=== PATIENT | female | born 1990 ===

== ENCOUNTER 2017-12-29 19:29 | Emergency (ER) | payer SELFPAY ==
[2017-12-29 20:29] LABS: #Lymphocytes 0.8 thou/uL (1.20-3.40); #Monocytes 0.4 thou/uL (0.11-0.59); #Neutrophils 6.4 thou/uL (1.40-6.50); %Basophils 0.4 % (0.0-1.0); %Eosinophils 0.2 % (0.0-10.0); %Monocytes 4.7 % (0.0-10.0); %Neutrophils 84.7 % (42.0-75.0); Hemoglobin 14.4 g/dL (12.0-16.0); Mean Corpuscular HGB CONC 34.3 g/dL (32.0-36.0); Mean Corpuscular Hemoglobin 33.2 pg (27.0-31.0); Mean Corpuscular Volume 96.9 fL (78.0-98.0); Mean Platelet Volume 9.6 fL (7.4-10.4); Platelet Count 105 thou/uL (130-400); RBC Distribution Width 11.1 % (11.5-14.5); Red Blood Cell (RBC) Count 4.34 mill/uL (4.20-5.40); White Blood Cell (WBC) Count 7.6 thou/uL (4.8-10.8)
[2017-12-29 20:36] LABS: PLT Morphology Comment Appears Decreased; RBC Morphology Normal
[2017-12-29 20:48] LABS: Bilirubin Negative (Negative); Blood, Urine Trace (Negative); Clarity CLOUDY (Clear); Glucose, Urine (Dipstick) Negative (Negative); Leukocyte Large (Negative); Nitrite Positive (Negative); Protein, Urine (Dipstick) Trace mg/dL (Neg-Trace); Specific Gravity, Urine 1.015 (1.002-1.036); Urobilinogen 0.2 mg/dL (0.2-1.0); pH, Urine 5.5 (5.0-9.0)
[2017-12-29 20:49] LABS: Pregnancy Test - Urine (BHCG) Negative (Negative); Pregu Control Background? CLEAR/WHITE (CLR/WHITE); Pregu Control Bar Appear? YES (CONTROL BAR); Specific Gravity 1.015 (1.002-1.036)
[2017-12-29 20:51] LABS: Bacteria/HPF 4+ HPF (None Seen); Hyaline Casts/LPF 0-3 HYALINE CAST LPF (0-3 Hyaline); Squamous Epithelial None Seen HPF (0-3)
[2017-12-29 21:40] LABS: Albumin 4.1 g/dL (3.5-5.0)
[2017-12-29 21:42] LABS: Calcium 8.9 mg/dL (7.8-10.44); Chloride 107 mmol/L (98-107); Potassium 3.8 mmol/L (3.5-5.1); Sodium 136 mmol/L (136-145)
[2017-12-29 21:43] LABS: Globulin 3.3 g/dL (2.4-3.5); Glucose 81 mg/dL (70-105); Protein, Total 7.4 g/dL (6.0-8.3)
[2017-12-29 21:45] LABS: Anion Gap 16 mmol/L (10-20); Bilirubin, Total 2.2 mg/dL (0.2-1.2); Carbon Dioxide 17 mmol/L (22-29)
[2017-12-29 21:46] LABS: Alkaline Phosphatase 82 U/L (40-150); Calc. Creatinine Clearance 0 mL/min (70-130); Estimated GFR-MDRD 75
[2017-12-29 21:47] LABS: BUN (Urea Nitrogen) 12 mg/dL (7.0-18.7)
[2017-12-29 21:48] LABS: AST (SGOT) 22 U/L (5-34)
[2017-12-29 21:49] LABS: ALT (SGPT) 32 U/L (8-55)
== END 2017-12-29 21:33 | disposition home or self-care (01) ==
LOC: ERS 19:29
DX: N39.0 Urinary tract infection, site not specified (principal)
CPT/HCPCS: 80053; 81003; 81015; 81025; 85025; 87077; 87086; 87186; 96360